=== PATIENT | female | born 1990 | race African-American/Black ===

== ENCOUNTER → 2016-09-09 | Outpatient (CLI) | payer OTHER ==
[2016-09-09 10:54] LABS: BASOPHIL % 0.5 % (0-2); PLATELET COUNT 209 x10^3mcL (130-400); RED CELL DISTRIBUTION WIDTH 14.5 % (11.5-14.5)
[2016-09-09 10:58] LABS: rbc morphology (normal/abnorm) ABNORMAL (NORMAL)
[2016-09-09 11:25] LABS: ALBUMIN 3.9 g/dL (3.4-5.0); ALKALINE PHOSPHATASE 58 U/L (46-116); ALT/SGPT 17 U/L (14-59); AST/SGOT 19 U/L (15-37); BILIRUBIN TOTAL 0.2 mg/dL (0.20-1.00); CALCIUM 9.3 mg/dL (8.5-10.1); CHLORIDE SERUM 101 mmol/L (98-107); CHOLESTEROL 146 mg/dL (<200); CHOLESTEROL/HDL RATIO 2.9; CREATININE SERUM 0.8 mg/dL (0.6-1.0); GFR1 > 60 mL/min; GLUCOSE SERUM 80 mg/dL (74-106); HDL CHOLESTEROL 51 mg/dL (40-60); SODIUM SERUM 138 mmol/L (136-145); TRIGLYCERIDES 58 mg/dL (<150)
[2016-09-09 11:26] LABS: IRON 80 ug/dL (50-170); TOTAL IRON BINDING CAPACITY 296 ug/dL (250-450); TOTAL PROTEIN, SERUM 8.4 g/dL (6.4-8.2)
[2016-09-09 11:47] LABS: FREE T4 1.07 ng/dL (0.76-1.46); FREE THYROXINE INDEX 2.7 ug/dL (1.4-4.5); T4(THYROXINE) 8.6 ug/dL (4.7-13.3)
[2016-09-10 14:46] LABS: T3 TOTAL 1.22 ng/mL
== END | disposition home or self-care (01) ==
LOC: LB 10:30
PROVIDERS: Family Medicine
DX: Z00.00 Encounter for general adult medical examination without abnormal findings (principal); R79.9 Abnormal finding of blood chemistry, unspecified
CPT/HCPCS: 84439